=== PATIENT | male | born 1995 | race African-American/Black ===

== ENCOUNTER 2023-08-26 03:55 | Emergency (ER) | payer SELFPAY ==
[2023-08-26] MEDS: Sucralfate Suspension 1 GM/10 ML Cup PO ONE (04:13)
[2023-08-26] MEDS: Famotidine 20 MG/2 ML SDV IVPUSH ONE (04:13)
[2023-08-26] MEDS: Sodium Chloride 0.9% 10 ML Syringe FLUSH PRN (04:13)
[2023-08-26] MEDS: Sodium Chloride 0.9% 2.5 ML Syringe FLUSH PRN (04:13)
[2023-08-26 04:14] LABS: BASOPHILS ABSOLUTE AUTO 0.05 K/uL (0.00-0.20); BASOPHILS PERCENT AUTO 1.1 % (0.0-1.0); EOSINOPHILS ABSOLUTE AUTO 0.05 K/uL (0.00-0.45); EOSINOPHILS PERCENT AUTO 1.1 % (0.0-6.0); HEMOGLOBIN 12.8 g/dL (14.0-18.0); LYMPHOCYTES PERCENT AUTO 57.1 % (24.0-44.0); MEAN CORPUSCULAR HEMOGLOBIN 29.7 pg (28.0-32.0); MEAN CORPUSCULAR HGB CONC 34.6 g/dL (32.0-36.0); MEAN CORPUSCULAR VOLUME 85.8 fL (83.0-99.0); MEAN PLATELET VOLUME 9.3 fL (9.4-12.4); MONOCYTES PERCENT AUTO 15.4 % (0.0-8.0); NEUTROPHILS ABSOLUTE AUTO 1.15 K/uL (1.80-7.70); NEUTROPHILS PERCENT AUTO 25.3 % (41.0-71.0); PLATELET COUNT,PLT 199 K/uL (150-400); RED BLOOD CELL COUNT 4.31 M/uL (4.52-5.90); WHITE BLOOD CELL COUNT,WBC 4.55 K/uL (3.9-11.3)
[2023-08-26 04:39] LABS: A/G RATIO 0.9 (0.9-1.6); ALBUMIN 3.7 g/dL (3.4-5.0); BILIRUBIN TOTAL 0.4 mg/dL (0.2-1.0); CALCIUM 8.8 mg/dL (8.5-10.1); CARBON DIOXIDE,CO2 30.7 mmol/L (21.0-32.0); CREATININE 1.4 mg/dL (0.8-1.3); EST CRCL DRUG DOSING (CG) 78.56 mL/min; POTASSIUM,K 3.7 mmol/L (3.5-5.1); PROTEIN TOTAL,TP 7.9 g/dL (6.4-8.2)
[2023-08-26] MEDS: Sodium Chloride 0.9% 1,000 ML IV ONE (04:58)
== END 2023-08-26 06:32 | disposition home or self-care (01) ==
LOC: MW.ED 03:55
DX: R07.9 Chest pain, unspecified (principal); R03.0 Elevated blood-pressure reading, without diagnosis of hypertension; Z79.899 Other long term (current) drug therapy
CPT/HCPCS: 36415; 71046; 80053; 83690; 83735; 84484; 85025; 93005; 96374; 99285; A9270; J3490; J7030; 93010; 99283